=== PATIENT | female | born 1985 | race Caucasian/White ===

== ENCOUNTER 2019-06-04 15:16 | Outpatient (CLI) | payer OTHER ==
[~2019-06-04] VITALS: Ht 157.5 cm; Wt 77.1 kg
[~2019-06-04 15:16] MED LIST: PNV1TABL12 PO; PREN-19 PO
[2019-06-04] MEDS ORDERED: TERBUTALINE 1 ML ONE (16:09)
[2019-06-04 16:29] VITALS: Ht 157.5 cm; Wt 77.1 kg
[2019-06-04 16:30] VITALS: BP 124/75; PULSE 104; RESP 20
[2019-06-04] MEDS ORDERED: LACTATED RINGER'S 1,000 ML IV SCH (16:30)
[2019-06-04] MEDS ORDERED: TERBUTALINE 1 MG/ML INJ SC ONE (16:30)
== END 2019-06-04 18:00 | disposition home or self-care (01) ==
LOC: L-D 15:16 → OBT 15:16 → L-D 15:33 → OBT 18:00
PROVIDERS: ATTEND Obstetrics & Gynecology
DX: O62.9 Abnormality of forces of labor, unspecified (principal); Z3A.34 34 weeks gestation of pregnancy
CPT/HCPCS: 36415; 96360; J3105; J7120; Z7500; G0463